=== PATIENT | male | born 1945 | race Caucasian/White ===

== ENCOUNTER 2019-12-20 19:26 | Emergency (ER) | payer OTHER ==
[~2019-12-20] VITALS: Ht 177.8 cm; Wt 72.6 kg
[2019-12-20 19:27] VITALS: BP 150/82
[2019-12-20 20:58] LABS: ABSOLUTE NEUTROPHILS 10.3 thou/uL (1.4-8.2); BASOPHILS 0.4 % (0.0-2.0); EOSINOPHILS 0.3 % (0.0-3.0); HEMATOCRIT 38.4 % (42.0-52.0); HEMOGLOBIN 12.4 gm/dL (14.0-18.0); LYMPHOCYTES 3.7 % (24.0-44.0); MCH 27.2 pg (26.0-34.0); MCHC 32.4 g/dL (28.0-37.0); MCV 84.1 fL (80.0-100.0); MONOCYTES 9.5 % (1.0-8.0); PLATELET COUNT 383 thou/uL (150-400); POLYS 86.1 % (36.0-66.0); RBC 4.57 mil/uL (4.50-6.00); RDW 14.5 % (10.5-14.5); WBC 11.9 thou/uL (4.0-11.0)
[2019-12-20 21:19] LABS: BUN 28 mg/dL (7-18); CALCIUM 10.8 mg/dL (8.5-10.1); CREATININE 1.2 mg/dL (0.7-1.3); GLUCOSE 219 mg/dL (74-106); TROPONIN-I <0.06 ng/mL (<0.06)
[2019-12-20 21:51] LABS: ANION GAP 16 mmol/L (7-16); CHLORIDE 98 mmol/L (98-107); CO2 22 mmol/L (21-32); POTASSIUM 3.3 mmol/L (3.5-5.1); SODIUM 136 mmol/L (136-145)
[2019-12-21 05:39] VITALS: BP 118/61
[2019-12-21 06:02] LABS: HEMATOCRIT 34.8 % (42.0-52.0); HEMOGLOBIN 11.5 gm/dL (14.0-18.0); MCH 27.7 pg (26.0-34.0); MCV 83.9 fL (80.0-100.0); RBC 4.15 mil/uL (4.50-6.00); RDW 14.4 % (10.5-14.5); WBC 6.9 thou/uL (4.0-11.0)
[2019-12-21 06:43] LABS: CALCIUM 9.2 mg/dL (8.5-10.1); POTASSIUM 3.3 mmol/L (3.5-5.1)
--- NOTE | 2019-12-21 08:19 | EKG ---
[facility] [place] [place] [address] ELECTROCARDIOGRAM REPORT Name: JEROME LOVE Room #: 170-11 ADM IN M.R.#: [id number] Admission: 12/21/19 Attend Phys: Lupillo Krueger MD Discharge: Date of : 49 Report #: [id number] THIS REPORT FOR: cc: NOELLE - No family physician/PCP NOELLE - No family physician/PCP Taiwo Maradiaga MD [facility] THIS REPORT FOR: //name// [facility] Test Date: 2019-12-20 Test Time: 19:44:27 Pat Name: JEROME LOVE Department: Room: 170 Gender: M Broom Man: [id number] : 1945 Requested By: Anish Ornelas Order Number: [id number] MD: Taiwo Maradiaga Measurements Intervals [place] Rate: 120 P: 57 WV: 165 QRS: 27 QRSD: 94 T: 140 QT: 317 QTc: 448 Interpretive Statements Sinus tachycardia Nonspecific ST segment abnormality No previous ECG available for comparison Electronically Signed On 12-21-2019 8:18:35 ABSTRACT SEARCHER by Taiwo Maradiaga [email or web address] <ELECTRONICALLY SIGNED> By: Taiwo Maradiaga MD, FACC 12/21/19 0818 [id number] 43 Taiwo Maradiaga MD, [facility] /EPI
[2019-12-21 14:12] VITALS: BP 125/78
== END 2019-12-21 14:13 | disposition short-term general hospital (02) ==
LOC: ER 19:26 → EROBS 12-21 01:00 → ER 12-21 01:00 → EROBS 12-21 01:00 → ER 12-21 14:13
PROVIDERS: Emergency Medicine; Nurse Practitioner Family
DX: C38.3 Malignant neoplasm of mediastinum, part unspecified (principal); R06.00 Dyspnea, unspecified; Z88.0 Allergy status to penicillin